=== PATIENT | female | born 1955 | race Caucasian/White ===

== ENCOUNTER 2017-02-25 02:14 | Emergency (ER) | payer MEDICARE ==
--- NOTE | 2017-02-25 03:39 | ED ORDER SUMMARY ---
..... Patient: CODY MERCER OrderSheet [facility] VisitID: [id number] [address] [place] [address] 62y, F Registration Date/Time: 02/25/2017 ORDER SHEET Weight: 74.3 kg (stated) Allergies: No Known Drug Allergy GENERAL ORDERS: Suture Set-up: (02:52 02/25/2017 James Bonilla) (3:07 JQuivey R.N.) MEDICATION ORDERS: Tdap IM 0.5 mL (NOW, per protocol) (02:45 02/25/2017 JQuivey R.N. verbal order read back to James Bonilla) (Ack 2:58 JQuivey R.N.) (3:05 JQuivey R.N.) LET Topical 1 application (NOW) (02:45 02/25/2017 HalleyQuivejeaneth R.N. verbal order read back to James Bonilla) (Ack 2:58 JQuivey R.N.) (3:06 JQuivey R.N.) Ibuprofen PO 600 mg (NOW) (03:49 02/25/2017 Jeffry R.N. verbal order read back to James Bonilla) (3:49 RMheather R.N.) Verbal order read back and verified IV FLUIDS: ORDER SHEET NOTES: [Electronically signed by Wilfredo Figueredo Dr. (03:45 02/25/2017)] [Electronically signed by Mary Torres R.N. (03:52 02/25/2017)] [Electronically locked/signed by Mary Torres R.N. (03:52 02/25/2017)]
--- NOTE | 2017-02-25 03:39 | ED CLINICAL REPORT ---
Clinical Report - Physicians/Mid Levels [facility] [address] [place] [address] 02/25/2017 2:15 Patient: CODY MERCER Time Seen: 02:38; initial patient contact. Arrived- By private vehicle. Historian- patient. HISTORY OF PRESENT ILLNESS Chief Complaint: Injury to the right foot. The injury happened just prior to arrival. The patient sustained a puncture wound from a sharp object. Occurred at home. Patient is experiencing mild pain. Patient denies injury to the head or neck. REVIEW OF SYSTEMS The patient sustained a laceration. She complains of pain on weight bearing. She has had tingling. No swelling, weakness, numbness or suspected foreign body. All systems otherwise negative, except as recorded above. PAST HISTORY Fractured Metatarsal. Back Pain. SURGERIES: Bladder Suspension. Dilatation & Curettage. Fracture Repair. Hysterectomy. Tonsillectomy. Tubal Ligation. -. Last tetanus immunization was more than 5 years ago. Medications: None. Allergies: No Known Drug Allergy. SOCIAL HISTORY Never smoker. No alcohol use or drug use. ADDITIONAL NOTES The nursing notes have been reviewed. PHYSICAL EXAM Vital Signs: 02/25/2017 02:37 BP: 108/79. HR: 69. RR: 16. O2 saturation: 97%. Temp: 98.2 F. Pain level now: 7/10. Have been reviewed as normal. Appearance: Alert. Oriented X3. No acute distress. Skin: Skin warm and dry. Extremities: Right foot: mild tenderness and subcutaneous 1.0 cm laceration located in the dorsal aspect of the mid foot. Neurovascular intact distally. No erythema or swelling. No ankle injury. Foot and ankle exam otherwise negative. Extremities otherwise negative. Gait: Normal gait. Neuro, Vascular and Tendons: Vascular status intact. Sensation intact. Motor intact. Tendon function intact. Neuro: Oriented X 3. No motor deficit. No sensory deficit. PROGRESS AND PROCEDURES Laceration Repair: Location: right foot. Length: 0.5cm. Complexity: simple (sutured). Wound depth/shape- subcutaneous. Anesthesia provided using LET. Prepped with Hibiclens. Wound explored, cleansed and examined to the base in bloodless field with normal saline. Closure of superficial layer: 4-0 Prolene (1 sutures). Post-procedure: she is stable and there are no complications. Bleeding is controlled and neuro-vascular status is intact distal to the wound. Dressing applied. Tetanus immunization given. Estimated blood loss: 1 mL. Disposition: Discharged home in good and improved condition. Condition: good. CLINICAL IMPRESSION Single deep laceration to the right foot.No foreign body present. INSTRUCTIONS Protect wound and keep wound area clean. Change dressing twice daily. You may wash wounds briefly, then dry. Apply bacitracin twice daily. Sutures/juan should be removed in five days. Your Current Medications: CONTINUE TAKING THE FOLLOWING MEDICATIONS: None*. Follow-up: Follow up with your doctor in about five days for suture removal. Call for an appointment. Screening today revealed the patient's blood pressure to be in the normal range. (Electronically signed by Wilfredo Figueredo Dr. 02/25/2017 3:45)
--- NOTE | 2017-02-25 03:39 | ED NURSING NOTES ---
Clinical Report - Nurses [place] [address] [place] [address] 02/25/2017 2:15 Patient: CODY MERCER TRIAGE Triage time 02:37. Acuity: LEVEL 4. Chief Complaint: INJURY TO RIGHT FOOT. 02:44. Alert. SEPSIS SCREEN: Sepsis Screen. Negative (no infection suspected/documented). AV COMA SCORE: [place] Coma Scale: 15- eyes open spontaneously (4); best verbal response- oriented x 4 (5); best motor response- obeys commands (6). --02:44 Etienne Gleason R.N. 02:37 02/25/17. BP: 108/79. HR: 69. RR: 16. O2 saturation: 97%. Temp: 98.2 F (oral). Pain level now: 02/13. --02:44 Etienne Gleason R.N. Weight: 74.3 kg stated. Height/Length: 63 inches Per Patient. BMI: 29. --02:41 Etienne Gleason R.N. Medications None. --02:39 Etienne Gleason R.N. Medication/allergy information source: the patient. --02:44 Etienne Gleason R.N. Allergies No Known Drug Allergy. --02:39 Etienne Gleason R.N. History Arrived by private vehicle. Historian: patient. Accompanied by family. Primary physician (Patient can't remember name). This occurred (1 hours ago). Occurred at home. Mechanism of injury: (dropped scissors on foot). ( Patient reports that she dropped a pair of scissors onto her right foot). Treatment ENDOSCOPIC TECHNICIAN: Applied bandage. PAST MEDICAL HX: Tetanus status: more than 5 years ago. Immunizations: up-to-date. The patient has had a hysterectomy. SOCIAL HX: Never smoker. No alcohol use or drug use. No infectious disease exposure. ABUSE ASSESSMENT: No report of abuse. FALL RISK ASSESSMENT: Fall risk assessment completed. No fall risk identified. NUTRITIONAL RISK ASSESSMENT: The nutritional risk assessment revealed no deficiencies. FUNCTIONAL ASSESSMENT: Functional assessment: no impairments noted. LEARNING NEEDS ASSESSMENT: The learning needs assessment revealed no barriers. SKIN INTEGRITY ASSESSMENT: Skin integrity risk assessment completed. No skin integrity risk identified. --02:44 Etienne Gleason R.N. PROBLEMS: Fractured Metatarsal. Back Pain. --02:40 Etienne Gleason R.N. ADDITIONAL SURGERIES: Bladder Suspension. Dilatation & Curettage. Fracture Repair. Hysterectomy. Tonsillectomy. Tubal Ligation. --02:40 Etienne Gleason R.N. Interventions ID band on patient. To treatment room. --02:44 Etienne Gleason R.N. PHYSICAL ASSESSMENT 02:44. To room via wheelchair. GENERAL / NEURO / PSYCH: Oriented X 4. Alert. EXTREMITIES: Extremity pulses are within normal limits. Neuro-vascular status intact to the extremity. Right foot: single puncture wound. SKIN: Skin is warm and dry. --02:44 Etienne Gleason R.N. NURSING PROGRESS NOTES 02:45. Two patient identifiers checked. Call light placed in reach. Bed placed in lowest position. Brakes of bed on. Patient ready for evaluation- chart flagged. --02:45 Etienne Gleason R.N. 03:00 02/25/2017 TDAP IM 0.5 mL given. (Lot#: [id number], expiration date: 01/10/2019, Hand Tufter: sanofi pasteur). Given in the left deltoid. Allergies verified and confirmed 5 rights. Vaccine information statement provided to the patient. --03:05 Etienne Gleason R.N. 03:02 02/25/2017 LET Topical 1 application. Allergies verified and confirmed 5 rights. (Applied to Right foot). --03:06 Etienne Gleason R.N. 02:52 Patient soaking foot in water and chlorhexidine. --03:14 Etienne Gleason R.N. 02:58 Foot dried an LET applied. --03:15 Etienne Gleason R.N. 03:39 02/25/2017 Ibuprofen PO Tablets 600 mg given. Allergies verified and confirmed 5 rights. --03:49 Mary Torres R.N. 03:40. Applied clean dressing consisting of Band-Aid, following the application of antibiotic ointment (bacitracin). --03:52 Mary Torres R.N. DISPOSITION / DISCHARGE 03:49 02/25/17. No learning barriers present. Discharge instructions provided and reviewed with the patient. Reviewed medication(s). Treatments reviewed. Patient verbalized understanding. Written instructions provided in Cuban. The patient was discharged home and accompanied by family. She left the Emergency Department ambulatory and via private vehicle. Family member driving. --03:49 Mary Torres R.N. 03:43 02/25/17. BP: 112/57 taken on the left arm, while sitting. HR: 65. RR: 16. O2 saturation: 95% on room air. Temp: deferred. Pain level now: 03/16. --03:50 Mary Torres R.N. Locked/Released at 02/25/2017 3:52 by Mary Torres R.N.
--- NOTE | 2017-02-25 03:39 | ED NURSING NOTES ---
Clinical Report - Nurses [place] [address] [place] [address] 02/25/2017 2:15 Patient: CODY MERCER TRIAGE Triage time 02:37. Acuity: LEVEL 4. Chief Complaint: INJURY TO RIGHT FOOT. 02:44. Alert. SEPSIS SCREEN: Sepsis Screen. Negative (no infection suspected/documented). AV COMA SCORE: [place] Coma Scale: 15- eyes open spontaneously (4); best verbal response- oriented x 4 (5); best motor response- obeys commands (6). --02:44 Etienne Gleason R.N. 02:37 02/25/17. BP: 108/79. HR: 69. RR: 16. O2 saturation: 97%. Temp: 98.2 F (oral). Pain level now: 02/13. --02:44 Etienne Gleason R.N. Weight: 74.3 kg stated. Height/Length: 63 inches Per Patient. BMI: 29. --02:41 Etienne Gleason R.N. Medications None. --02:39 Etienne Gleason R.N. Medication/allergy information source: the patient. --02:44 Etienne Gleason R.N. Allergies No Known Drug Allergy. --02:39 Etienne Gleason R.N. History Arrived by private vehicle. Historian: patient. Accompanied by family. Primary physician (Patient can't remember name). This occurred (1 hours ago). Occurred at home. Mechanism of injury: (dropped scissors on foot). ( Patient reports that she dropped a pair of scissors onto her right foot). 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 PAST MEDICAL HX: Tetanus status: more than 5 years ago. Immunizations: up-to-date. The patient has had a hysterectomy. SOCIAL HX: Never smoker. No alcohol use or drug use. No infectious disease exposure. ABUSE ASSESSMENT: No report of abuse. FALL RISK ASSESSMENT: Fall risk assessment completed. No fall risk identified. NUTRITIONAL RISK ASSESSMENT: The nutritional risk assessment revealed no deficiencies. FUNCTIONAL ASSESSMENT: Functional assessment: no impairments noted. LEARNING NEEDS ASSESSMENT: The learning needs assessment revealed no barriers. SKIN INTEGRITY ASSESSMENT: Skin integrity risk assessment completed. No skin integrity risk identified. --02:44 Etienne Gleason R.N. PROBLEMS: Fractured Metatarsal. Back Pain. --02:40 Etienne Gleason R.N. ADDITIONAL SURGERIES: Bladder Suspension. Dilatation & Curettage. Fracture Repair. Hysterectomy. Tonsillectomy. Tubal Ligation. --02:40 Etienne Gleason R.N. Interventions ID band on patient. To treatment room. --02:44 Etienne Gleason R.N. PHYSICAL ASSESSMENT 02:44. To room via wheelchair. GENERAL / NEURO / PSYCH: Oriented X 4. Alert. EXTREMITIES: Extremity pulses are within normal limits. Neuro-vascular status intact to the extremity. Right foot: single puncture wound. SKIN: Skin is warm and dry. --02:44 Etienne Gleason R.N. NURSING PROGRESS NOTES 02:45. Two patient identifiers checked. Call light placed in reach. Bed placed in lowest position. Brakes of bed on. Patient ready for evaluation- chart flagged. --02:45 Etienne Gleason R.N. 03:00 02/25/2017 TDAP IM 0.5 mL given. (Lot#: [id number], expiration date: 01/10/2019, Personal Banking Officer: sanofi pasteur). Given in the left deltoid. Allergies verified and confirmed 5 rights. Vaccine information statement provided to the patient. --03:05 Etienne Gleason R.N. 03:02 02/25/2017 LET Topical 1 application. Allergies verified and confirmed 5 rights. (Applied to Right foot). --03:06 Etienne Gleason R.N. 02:52 Patient soaking foot in water and chlorhexidine. --03:14 Etienne Gleason R.N. 02:58 Foot dried an LET applied. --03:15 Etienne Gleason R.N. 03:39 02/25/2017 Ibuprofen PO Tablets 600 mg given. Allergies verified and confirmed 5 rights. --03:49 Mary Torres R.N. 03:40. Applied clean dressing consisting of Band-Aid, following the application of antibiotic ointment (bacitracin). --03:52 Mary Torres R.N. DISPOSITION / DISCHARGE 03:49 02/25/17. No learning barriers present. Discharge instructions provided and reviewed with the patient. Reviewed medication(s). Treatments reviewed. Patient verbalized understanding. Written instructions provided in Irish. The patient was discharged home and accompanied by family. She left the Emergency Department ambulatory and via private vehicle. Family member driving. --03:49 Mary Torres R.N. 03:43 02/25/17. BP: 112/57 taken on the left arm, while sitting. HR: 65. RR: 16. O2 saturation: 95% on room air. Temp: deferred. Pain level now: 03/16. --03:50 Mary Torres R.N. Locked/Released at 02/25/2017 3:52 by Mary Torres R.N.
--- NOTE | 2017-02-25 03:39 | ED ORDER SUMMARY ---
..... Patient: CODY MERCER OrderSheet [facility] VisitID: [id number] [address] [place] [address] 62y, F Registration Date/Time: 02/25/2017 ORDER SHEET Weight: 74.3 kg (stated) Allergies: No Known Drug Allergy GENERAL ORDERS: Suture Set-up: (02:52 02/25/2017 James Bonilla) (3:07 JQuivey R.N.) MEDICATION ORDERS: Tdap IM 0.5 mL (NOW, per protocol) (02:45 02/25/2017 JQuivey R.N. verbal order read back to James Bonilla) (Ack 2:58 JQuivey R.N.) (3:05 JQuivey R.N.) LET Topical 1 application (NOW) (02:45 02/25/2017 HalleyQuivejeaneth R.N. verbal order read back to James Bonilla) (Ack 2:58 JQuivey R.N.) (3:06 JQuivey R.N.) Ibuprofen PO 600 mg (NOW) (03:49 02/25/2017 Jeffry R.N. verbal order read back to James Bonilla) (3:49 RMheather R.N.) Verbal order read back and verified IV FLUIDS: ORDER SHEET NOTES: [Electronically signed by Wilfredo Figueredo Dr. (03:45 02/25/2017)] [Electronically signed by Mary Torres R.N. (03:52 02/25/2017)] [Electronically locked/signed by Mary Torres R.N. (03:52 02/25/2017)]
--- NOTE | 2017-02-25 03:53 | ED DISCHARGE INSTRUCTIONS ---
Patient: CODY MERCER General Instructions [facility] VisitID: [id number] [place] [address] 62y, F Registration Date/Time: 02/25/2017 Single deep laceration to the right foot.No foreign body present. INSTRUCTIONS Protect wound and keep wound area clean. Change dressing twice daily. You may wash wounds briefly, then dry. Apply bacitracin twice daily. Sutures/juan should be removed in five days. Your Current Medications: CONTINUE TAKING THE FOLLOWING MEDICATIONS: None*. Follow-up: Follow up with your doctor in about five days for suture removal. Call for an appointment. Screening today revealed the patient's blood pressure to be in the normal range. ADDITIONAL INFORMATION Laceration (All Closures) Alaceration is a cut through the skin. This will usually require stitches (sutures) or juan if it is deep. Minor cuts may be treated with a surgical tape closure orskin glue. Home care The following guidelines will help you care for your laceration at home: Extremity, face, or trunk wounds Keep the wound clean and dry. If a bandage was applied and it becomes wet or dirty, replace it. Otherwise, leave it in place for the first 24 hours. If stitches or juan were used, clean the wound daily. After removing the bandage, wash the area with soap and water. Use a wet cotton swab to loosen and remove any blood or crust that forms. The doctor may prescribe an antibiotic cream or ointment to prevent infection. Do not stop taking this medication until you have finished the prescribed course or the doctor tells you to stop. The doctor may also prescribe medications for pain. Follow the doctors instructions for taking these medications. You may remove the bandage to shower as usual after the first 24 hours, but do not soak the area in water (no swimming) until the stitches or juan are removed. If surgical tape was used, keep the area clean and dry. If it becomes wet, blot it dry with a towel. If skin glue was used, do not scratch, rub, or pick at the adhesive film. Do not place tape directly over the film. Do not apply liquid, ointment, or creams to the wound while the film is in place. Do not clean the wound with peroxide and do not apply ointments. Avoid activities that cause heavy sweating until the film has fallen off. Protect the wound from prolonged exposure to sunlight or tanning lamps. You may shower as usual but do not soak the wound in water (no baths or swimming). The film will fall off by itself in 510 days. Scalp wounds During the first two days, you may carefully rinse your hair in the shower to remove blood, glass or dirt particles. After two days, you may shower and shampoo your hair normally. Do not soak your scalp in the tub or go swimming until the stitches or juan have been removed. Talk with your doctor before applying any antibiotic ointment to the wound. Mouth wounds Eat soft foods to reduce pain. If the cut is inside of your mouth, clean by rinsing after each meal and at bedtime with a mixture of equal parts water and hydrogen peroxide (do not swallow!). Or, you can use a cotton swab to directly apply hydrogen peroxide onto the cut. Mouth wounds can be painful when eating. You may use an [id number]-azcutuj local numbing solution for pain relief. If this is not available, you may use any numbing solution for teething babies. You may apply this directly to the sores with a cotton-tip swab or with your finger. Follow-up care Follow up with your health care provider. Most skin wounds heal within ten days. Mouth and facial wounds heal within five days. However, even with proper treatment, a wound infection may sometimes occur. Therefore, you should check the wound daily for signs of infection listed below. Stitches should be removed from the face within five days; stitches and juan should be removed from other parts of the body within 714 days. If dissolving stitches were used in the mouth, these will fall out or dissolve without the need for removal. If tape closures were used, remove them yourself if they have not fallen off after 7 days. Ifskin glue was used, the film will fall off by itself in 510 days. When to seek medical care Get prompt medical attention if any of these occur: Bleeding not controlled by direct pressure Signs of infection, including increasing pain in the wound, increasing wound redness or swelling, or pus coming from the wound Fever of 100.4F (38C) or higher, or as directed by your health care provider Stitches or juan come apart or fall out or surgical tape falls off before 7 days Wound edges re-open Bandage Change If the bandage becomes wet or dirty, replace it. Otherwise, leave it in place for the first 24 hours. Then once a day: After removing the bandage, wash the area with soap and water. Use a wet cotton swab to loosen and remove any blood or crust that forms on the wound. After cleaning, apply a thin layer of antibiotic ointment or cream. Reapply the bandage. You may shower as usual after the first 24 hours. If the bandage is on an arm or leg, cover it with a plastic bag rubber banded at both ends before showering. No tub baths or swimming until the bandage is removed and the wound healed (at least 7 days). You have been given the following additional information: Laceration, All Dressing Change (Electronically signed by Wilfredo Figueredo Dr. 02/25/2017 3:45)
--- NOTE | 2017-02-25 03:53 | ED MAR SUMMARY ---
..... Medication Administration Record [facility] [address] [place] [address] Patient: CODY MERCER Visit ID: [id number] 62y, F Weight: 74.3 kg Height/Length: 63 in BMI: 29 ALLERGIES: No Known Drug Allergy Given 03:00 02/25/2017 Etienne Gleason, R.N. Medication Administered: TDAP [IM], Dose: 0.5 mL IM. Medication Ordered: Tdap IM 0.5 mL (NOW, per protocol). Given 03:02 02/25/2017 Etienne Gleason, R.N. Medication Administered: LET [TOPICAL], Dose: 1 application Topical. Medication Ordered: LET Topical 1 application (NOW). Given 03:39 02/25/2017 Mary Torres RBrigidNBrigid Medication Administered: IBUPROFEN [PO], Dose: 600 mg Tablets PO. Medication Ordered: Ibuprofen PO 600 mg (NOW).
--- NOTE | 2017-02-25 03:53 | ED MAR SUMMARY ---
..... Medication Administration Record [facility] [address] [place] [address] Patient: CODY MERCER Visit ID: [id number] 62y, F Weight: 74.3 kg Height/Length: 63 in BMI: 29 ALLERGIES: No Known Drug Allergy Given 03:00 02/25/2017 Etienne Gleason, R.N. Medication Administered: TDAP [IM], Dose: 0.5 mL IM. Medication Ordered: Tdap IM 0.5 mL (NOW, per protocol). Given 03:02 02/25/2017 Etienne Gleason, R.N. Medication Administered: LET [TOPICAL], Dose: 1 application Topical. Medication Ordered: LET Topical 1 application (NOW). Given 03:39 02/25/2017 Mary Torres RBrigidNBrigid Medication Administered: IBUPROFEN [PO], Dose: 600 mg Tablets PO. Medication Ordered: Ibuprofen PO 600 mg (NOW).
--- NOTE | 2017-02-25 03:53 | ED MED RECONCILIATION SUMMARY ---
Patient: CODY MERCER Medication Reconciliation Report [facility] VisitID: [id number] [address] [place] [address] 62y, F Registration Date/Time: 02/25/2017 Weight: 74.3 kg Height/Length: 63 in. BMI: 29.0 ALLERGIES: No Known Drug Allergy The patient's Home Medications are listed below: NONE. The source(s) of the original Home Medication information: patient The following Medications were given to the patient in the Emergency Department: TDAP [IM] IM 0.5 mL, administered: 02/25/2017 3:00:00 AM LET [Topical] Topical 1 application, administered: 02/25/2017 3:02:00 AM Ibuprofen [PO] PO 600 mg, administered: 02/25/2017 3:39:00 AM The following Medications were prescribed to the patient: None.
--- NOTE | 2017-02-25 03:53 | ED MED RECONCILIATION SUMMARY ---
Patient: CODY MERCER Medication Reconciliation Report [facility] VisitID: [id number] [address] [place] [address] 62y, F Registration Date/Time: 02/25/2017 Weight: 74.3 kg Height/Length: 63 in. BMI: 29.0 ALLERGIES: No Known Drug Allergy The patient's Home Medications are listed below: NONE. The source(s) of the original Home Medication information: patient The following Medications were given to the patient in the Emergency Department: TDAP [IM] IM 0.5 mL, administered: 02/25/2017 3:00:00 AM LET [Topical] Topical 1 application, administered: 02/25/2017 3:02:00 AM Ibuprofen [PO] PO 600 mg, administered: 02/25/2017 3:39:00 AM The following Medications were prescribed to the patient: None.
== END 2017-02-25 03:49 | disposition home or self-care (01) ==
LOC: ED SRH 02:14
DX: S91.311A Laceration without foreign body, right foot, initial encounter (principal); W26.8XXA Contact with other sharp object(s), not elsewhere classified, initial encounter; Y93.9 Activity, unspecified; Y99.9 Unspecified external cause status; Y92.009 Unspecified place in unspecified non-institutional (private) residence as the place of occurrence of the external cause; Z23 Encounter for immunization